=== PATIENT | female | born 1985 | race Caucasian/White ===

== ENCOUNTER 2020-07-10 16:51 | Outpatient (CLI) | payer OTHER, SELFPAY ==
[2020-07-10 17:43] LABS: Influenza A QL RT-PCR Negative (Negative); Influenza B QL RT-PCR Negative (Negative); SARS-CoV-2 RNA PCR Negative (Negative)
== END 2020-07-10 16:52 | disposition home or self-care (01) ==
LOC: CHSLAB 16:54
PROVIDERS: PCP Family Medicine; Visit Provider Family Medicine
DX: J00 Acute nasopharyngitis [common cold] (principal); Z20.822 Contact with and (suspected) exposure to COVID-19
CPT/HCPCS: 87502; C9803; U0003; U0005

== ENCOUNTER 2021-01-06 10:23 | Outpatient (CLI) | payer OTHER, SELFPAY ==
[2021-01-08 10:00] LABS: TB Skin Test Erythema 0 mm; TB Skin Test Induration 0 mm (0-10); TB Skin Test Interpretation Negative (Negative); TB Skin Test Site Left Arm
== END 2021-01-06 10:24 | disposition home or self-care (01) ==
LOC: CHSLAB 10:25
PROVIDERS: PCP Family Medicine; Visit Provider Family Medicine
DX: Z11.1 Encounter for screening for respiratory tuberculosis (principal)
CPT/HCPCS: 36415; 86580

== ENCOUNTER 2021-02-17 15:36 | Outpatient (CLI) | payer OTHER, SELFPAY ==
[2021-02-17 16:57] LABS: Influenza A QL RT-PCR Negative (Negative); Influenza B QL RT-PCR Negative (Negative); SARS-CoV-2 RNA PCR Negative (Negative)
== END 2021-02-17 15:37 | disposition home or self-care (01) ==
LOC: CHSLAB 15:40
PROVIDERS: PCP Family Medicine; Visit Provider Family Medicine
DX: J00 Acute nasopharyngitis [common cold] (principal); Z20.822 Contact with and (suspected) exposure to COVID-19
CPT/HCPCS: 87081; 87502; 87880; C9803; U0003; U0005

== ENCOUNTER 2021-09-09 12:45 | Emergency (ER) | payer OTHER, SELFPAY ==
[2021-09-09 12:56] VITALS: BP 139/92; PULSE 95; RESP 18; TEMP 36.9; O2SAT 98
--- NOTE | 2021-09-09 13:52 | ED.EAR ---
HPI - Ear Problem General Chief complaint: Ear Stated complaint: Double ear infection Time Seen by Provider: 09/09/21 12:49 Source: patient and RN notes reviewed Mode of arrival: ambulatory Limitations: no limitations History of Present Illness Complaint: ear discharge (left and decreased left hearing x 1 week.) Location: left ear Duration: constant Severity: mild Relieving factors: nothing Exacerbating factors: nothing Associated symptoms ear: decreased hearing Related Data Home Medications Medication Instructions Recorded Confirmed norethindrone 1 mg-ethinyl 1 tablet DAILY 09/09/21 09/09/21 estradiol 10 mcg (24)-iron 10 mcg(2) tablet (Lo Loestrin Fe) Allergies Allergy/AdvReac Type Severity Reaction Status Date / Time No Known Allergies Allergy Mild Verified 09/09/21 13:04 Review of Systems Review of Systems: All systems reviewed & are unremarkable except as noted in HPI and below Constitutional: Constitutional: Reports no additional constitutional complaints Eyes: Eyes: Reports no additional eye complaints ENT: Reports system reviewed and no additional complaints, except as documented Cardiovascular: Cardiovascular: Reports no additional cardiovascular complaints Respiratory: Respiratory: Reports no additional respiratory complaints Gastrointestinal: Gastrointestinal: Reports no additional gastrointestinal complaints Genitourinary: Genitourinary: Reports no additional female genitourinary complaints Musculoskeletal: Musculoskeletal: Reports no additional musculoskeletal complaints Integumentary/Breasts: Skin/Breast: Reports system reviewed and no additional complaints, except as docu Neurologic: Reports system reviewed and no additional complaints, except as documented Psychiatric: Psychiatric: Reports no additional psychiatric complaints Endocrine: Endocrine: Reports no additional endocrine complaints Hematologic/Lymphatic: Hematologic/Lymphatic: Reports no additional hematologic/lymphatic complaints Allergic/Immunologic: Allergic/Immunologic: Reports no additional allergic/immunologic complaints PMFSH Past Medical History Medical History (Updated 09/09/21 @ 14:13 by Humberto Obrien MD) Eustachian tube dysfunction Exam Const: General: healthy appearing and no acute distress Nutritional Appearance: well nourished Orientation/consciousness: patient oriented x3 Limitations: no limitations HENMT: Head: normal to inspection Ears: external ears normal, TM's normal bilaterally and EAC's normal General nose exam: Normal external nose present and Normal nares present Face and sinus: normal facial exam and sinuses nontender Mouth: Yes Normal oral and palatal mucosa present and Yes moist mucous membranes Teeth and gingiva: dentition normal Throat: posterior oropharynx normal Eyes: Conjunctivae: conjunctivae normal Pupils: Equal, round and reactive pupils present EOM: EOMs intact bilaterally Neck: Neck: normal visual inspection, no lymphadenopathy and no meningeal signs Chest: Chest palpation & inspection: normal inspection of the chest Resp: Effort & Inspection: normal respiratory effort Auscultation: clear to auscultation bilaterally Cardio: Rate: regular rate Rhythm: regular rhythm GI: GI Palp: Yes Soft to palpation and No Tenderness to palpation present (GI) Auscultation: normal bowel sounds : General: Yes bladder normal to palpation and Yes no CVA tenderness Bimanual exam- vagina & uterus: bladder normal to palpation Back/Spine/Pelvis: Back: no CVA tenderness Skin: General skin exam: normal color Rashes: no rashes Wounds: no wounds Neuro: General: patient oriented x3, moves all extremities, no meningeal signs, no focal motor deficits and CN's II-XI intact bilaterally Cranial nerves: Yes Equal, round and reactive pupils present and Yes Nystagmus not present Speech: normal speech Gait exam (Neuro): Normal gait present Extrem: General: normal to inspe
[2021-09-09] MEDS: guaiFENesin 12 HR 600 MG TABCR PO (14:12)
[2021-09-09 14:15] VITALS: BP 137/95; PULSE 95; RESP 18; TEMP 36.5; O2SAT 96
== END 2021-09-09 14:15 | disposition home or self-care (01) ==
PROVIDERS: Emergency Provider Emergency Medicine; PCP Family Medicine
DX: H69.92 Unspecified Eustachian tube disorder, left ear (principal)
CPT/HCPCS: 99283; A9270

== ENCOUNTER 2021-09-20 07:40 | Outpatient (CLI) | payer OTHER, SELFPAY | END 2021-09-20 07:41 | disposition home or self-care (01) | LOC: CHSIMG 07:42 | PROVIDERS: PCP Family Medicine; Visit Provider Family Medicine | DX: H92.09 Otalgia, unspecified ear (principal) | CPT/HCPCS: 99199 ==

== ENCOUNTER 2021-09-27 21:12 | Emergency (ER) | payer OTHER, SELFPAY ==
--- NOTE | 2021-09-27 21:20 | ED.EAR ---
HPI - Ear Problem General Chief complaint: Ear Stated complaint: left ear pain Source: patient History of Present Illness HPI Narrative: since September 01 patient has been on 2 antibiotics Zithromax and Augmentin. She was recently here for blood coming out of her left ear and was put on some Mucinex. Today she is having pain in her left ear again. She denies any fever chills. Complaint: ear pain Location: left ear Duration: constant Severity: moderate Relieving factors: nothing Exacerbating factors: palpation Context: Reports recent illness Discharge from ear: Reports no Treatment prior to arrival: none Related Data Home Medications Medication Instructions Recorded Confirmed norethindrone 1 mg-ethinyl 1 tablet DAILY 09/09/21 09/27/21 estradiol 10 mcg (24)-iron 10 mcg(2) tablet (Lo Loestrin Fe) Allergies Allergy/AdvReac Type Severity Reaction Status Date / Time No Known Allergies Allergy Mild Verified 09/27/21 21:40 Review of Systems Review of Systems: All systems reviewed & are unremarkable except as noted in HPI and below PMFSH Past Medical History Medical History (Updated 09/27/21 @ 21:42 by Abram No MD) Eustachian tube dysfunction Surgical History Surgical History (Updated 09/27/21 @ 21:41 by Abram No MD) Hx of tonsillectomy Social History Social History (Updated 09/27/21 @ 21:42 by Abram No MD) Smoking packs per day: 0.2 Smoking cigarettes per day: 4.0 Smoking status: Current some day smoker Alcohol intake: current Alcohol use details: socially Substance use: never Exam Const: General: healthy appearing, no acute distress and alert Nutritional Appearance: well nourished and obese morbidly obese Orientation/consciousness: patient oriented x3 HENMT: Head: normal to inspection Ears: Abnormal EAC present erythema on the left and diffuse, edema on the left and localized and EAC tenderness on the left and localized and TM abnormal other ( Appears to be some dried blood on top of the tympanic membrane difficult to assess perforation); not bulging, not erythematous and with no loss of landmarks General nose exam: Normal external nose present Face and sinus: normal facial exam Eyes: Conjunctivae: conjunctivae normal Pupils: Equal, round and reactive pupils present EOM: EOMs intact bilaterally Neck: Neck: normal visual inspection and no lymphadenopathy Resp: Effort & Inspection: normal respiratory effort Auscultation: clear to auscultation bilaterally Cardio: Rate: regular rate Rhythm: regular rhythm GI: GI Palp: Yes Soft to palpation and No Tenderness to palpation present (GI) Auscultation: normal bowel sounds Back/Spine/Pelvis: Cervical Spine: cervical ROM normal Thoracic/Lumbar Spine: thoraco-lumbar ROM normal Skin: General skin exam: normal color Rashes: no rashes Neuro: General: patient oriented x3, moves all extremities, no focal motor deficits and CN's II-XI intact bilaterally Speech: normal speech Gait exam (Neuro): Normal gait present Extrem: General: normal to inspection and no clubbing, cyanosis or edema Psych: Mental Status: mental status grossly normal Affect: normal affect Attitude: cooperative Discharge Plan Discharge Clinical Impression: Otitis externa Qualifiers: Otitis externa type: diffuse Chronicity: acute Laterality: left Qualified Code(s): H60.312 - Diffuse otitis externa, left ear Patient Disposition: Home, Self-Care Condition: Stable Instructions: Earache (ED) Additional Instructions: follow-up with your primary care physician if not improved in the next 48 hours. Use 10 drops in the left ear daily. no swimming. Prescriptions: New ofloxacin 0.3 % drops 10 drp LEFT EAR DAILY 7 Days Qty: 10 0RF No Action Lo Loestrin Fe 1 mg-10 mcg (24)/10 mcg (2) tablet 1 tablet DAILY Follow-up/Referrals: Cornelio Horton MD [Primary Care Provider] - Time of Disposition: 21:38
[2021-09-27 21:36] VITALS: BP 140/97; PULSE 88; RESP 18; TEMP 36.6; O2SAT 96
== END 2021-09-27 22:12 | disposition home or self-care (01) ==
PROVIDERS: Emergency Provider Emergency Medicine; PCP Family Medicine
DX: H60.312 Diffuse otitis externa, left ear (principal)
CPT/HCPCS: 99283; A9270

== ENCOUNTER 2021-09-30 10:21 | Outpatient (CLI) | payer OTHER, SELFPAY ==
--- NOTE | ~2021-09-30 | MR_ITS ---
EXAMINATION: MR brain IAC wo con DATE: 09/30/2021 11:41 INDICATION: Left-sided hearing loss. TECHNIQUE: Magnetic resonance imaging (MRI) of the brain, brainstem, and internal auditory canals was performed without intravenous contrast. COMPARISON: Head CT 09/14/2009 FINDINGS: The cerebellar tonsils extend 7 mm inferior to foramen magnum, consistent with Chiari I mal formation. There is no intracranial hemorrhage, acute infarction, or abnormal intracranial mass lesio n. The ventricles are normal in size. The internal auditory canals and inner and middle ears are norm al. There is a small left mastoid effusion. The paranasal sinuses are clear. The orbits are normal. IMPRESSION: 1. Chiari I malformation. Reviewed, dictated and finalized at location A. IMPRESSION: 1. Chiari I malformation.
== END 2021-09-30 10:22 | disposition home or self-care (01) ==
LOC: CHSIMG 10:23
PROVIDERS: PCP Family Medicine; Visit Provider Family Medicine
DX: H92.09 Otalgia, unspecified ear (principal)
CPT/HCPCS: 70551

== ENCOUNTER 2021-10-18 07:40 | Outpatient (CLI) | payer OTHER, SELFPAY ==
--- NOTE | ~2021-10-18 | MR_ITS ---
EXAMINATION: MR cervical spine wo/w con DATE: 10/18/2021 10:46 INDICATION: Chiari I malformation. TECHNIQUE: Magnetic resonance imaging (MRI) of the cervical spine was performed without and with 10 m L MultiHance intravenous contrast. COMPARISON: Brain MRI 09/30/2021 FINDINGS: Bone alignment is normal. Vertebral body heights and intervertebral disc heights are normal . The cerebellar tonsils extend 7 mm inferior to foramen magnum, consistent with Chiari I malformatio n. The spinal cord signal intensity is normal. No syrinx. The following disc levels are specifically discussed: C2-C3 through C7-T1: The disc does not extend beyond the endplate margin. There is no uncovertebral j oint osteoarthritis. There is no facet joint osteoarthritis. There is no neural foraminal stenosis. T here is no central canal stenosis. IMPRESSION: 1. Chiari I malformation. 2. Normal cervical spinal cord. Reviewed, dictated and finalized at location A.
--- NOTE | ~2021-10-18 | MR_ITS ---
EXAMINATION: MR lumbar spine wo/w con DATE: 10/18/2021 10:46 INDICATION: Chiari I malformation. TECHNIQUE: Magnetic resonance imaging (MRI) of the lumbar spine was performed without and with 10 mL MultiHance intravenous contrast. COMPARISON: Lumbar spine radiographs 02/02/2011 FINDINGS: Bone alignment is normal. Vertebral body heights and intervertebral disc heights are normal . The distal spinal cord signal intensity is normal. The conus medullaris is at T12. The following di sc levels are specifically discussed: L1-L2 through L3-L4: The disc does not extend beyond the endplate margin. There is no facet joint ost eoarthritis. There is no neural foraminal stenosis. There is no central canal stenosis. L4-L5: The disc does not extend beyond the endplate margin. There is mild bilateral facet joint osteo arthritis. There is mild right neural foraminal stenosis. There is no central canal stenosis. L5-S1: The disc does not extend beyond the endplate margin. There is mild bilateral facet joint osteo arthritis. There is no neural foraminal stenosis. There is no central canal stenosis. IMPRESSION: 1. Mild lumbar spondylosis. Reviewed, dictated and finalized at location A. IMPRESSION: 1. Mild lumbar spondylosis.
--- NOTE | ~2021-10-18 | MR_ITS ---
EXAMINATION: MR thoracic spine wo/w con DATE: 10/18/2021 10:46 INDICATION: Chiari I malformation. TECHNIQUE: Magnetic resonance imaging (MRI) of the thoracic spine was performed without and with 10 m L MultiHance intravenous contrast. COMPARISON: None FINDINGS: Bone alignment is normal. Vertebral body heights and intervertebral disc heights are normal . The discs do not extend beyond the endplate margins. The facet joints are normal. No neural foramin al stenosis or central canal stenosis. The spinal cord signal intensity is normal. IMPRESSION: 1. Normal thoracic spine. Reviewed, dictated and finalized at location A. IMPRESSION: 1. Normal thoracic spine.
[2021-10-18 07:59] LABS: Estimated Glomerular Filt Rate > 60
== END 2021-10-18 07:41 | disposition home or self-care (01) ==
LOC: CHSIMG 07:41
PROVIDERS: PCP Family Medicine; Visit Provider Family Medicine
DX: G93.5 Compression of brain (principal)
CPT/HCPCS: 72156; 72157; 72158; A9577

== ENCOUNTER 2021-11-15 15:09 | Emergency (ER) | payer BC, OTHER, SELFPAY ==
--- NOTE | ~2021-11-15 | XR_ITS ---
EXAMINATION: XR chest 1V portable Exam Date/Time: 11/15/2021 16:35 CDT HISTORY: COUGH, SHORTNESS OF BREATH X 1 WEEK. Comparison: 09/23/2009. RESULT: Lines, tubes, and devices: None. Lungs and pleura: Clear. Cardiomediastinal silhouette: Stable. Other: No acute osseous or upper abdominal finding. IMPRESSION: No acute cardiopulmonary process. Reviewed, dictated and finalized at location K.
[2021-11-15 15:18] VITALS: BP 122/89; PULSE 99; RESP 16; TEMP 36.4; O2SAT 97
--- NOTE | 2021-11-15 15:24 | ED.URI ---
HPI - URI/Sore Throat General Chief Complaint: Upper Respiratory Infection Stated Complaint: pt thinks she has bronchitis Time Seen by Provider: 11/15/21 15:25 Source: patient Mode of arrival: ambulatory History of Present Illness HPI Narrative: 36-year-old female, smoker with a prior history of bronchitis / pneumonia presents to the ER with a five-day history of -- cough which is minimally productive of yellow sputum -- chest discomfort which is made worse by coughing. The chest discomfort is unaffected by exercise /activity No fever or chills. patient is COVID vaccinated and she did have COVID 1 year ago. The patient has had a recent left tympanic membrane perforation. She has had recurrent bronchitis in the last 3 months for which she has been on Augmentin and Zithromax. MD elicited complaint: fever and cough Onset (ago): day(s) ( started 5 days ago) Consistency: constant Severity: moderate Description of mucous: yellow Able to tolerate fluids by mouth: Yes Exacerbating factors: nothing Relieving factors: nothing Associated symptoms: cough Treatments prior to arrival: none Related Data Home Medications Medication Instructions Recorded Confirmed norethindrone 1 mg-ethinyl 1 tablet DAILY 09/09/21 11/15/21 estradiol 10 mcg (24)-iron 10 mcg(2) tablet (Lo Loestrin Fe) Allergies Allergy/AdvReac Type Severity Reaction Status Date / Time gabapentin AdvReac Other Verified 11/15/21 15:23 Review of Systems Review of Systems: All systems reviewed & are unremarkable except as noted in HPI and below Constitutional: Constitutional: Reports as per HPI and Reports no additional constitutional complaints Eyes: Eyes: Reports as per HPI and Reports no additional eye complaints ENT: Reports system reviewed and no additional complaints, except as documented and Reports as per HPI Cardiovascular: Cardiovascular: Reports as per HPI and Reports no additional cardiovascular complaints Comments: Chest discomfort Respiratory: Respiratory: Reports as per HPI, Reports no additional respiratory complaints and Reports cough Gastrointestinal: Gastrointestinal: Reports as per HPI and Reports no additional gastrointestinal complaints Genitourinary: Genitourinary: Reports no additional female genitourinary complaints and Reports as per HPI Musculoskeletal: Musculoskeletal: Reports no additional musculoskeletal complaints and Reports as per HPI Integumentary/Breasts: Skin/Breast: Reports system reviewed and no additional complaints, except as docu and Reports as per HPI Neurologic: Reports system reviewed and no additional complaints, except as documented and Reports as per HPI Psychiatric: Psychiatric: Reports no additional psychiatric complaints and Reports as per HPI Endocrine: Endocrine: Reports no additional endocrine complaints and Reports as per HPI Hematologic/Lymphatic: Hematologic/Lymphatic: Reports no additional hematologic/lymphatic complaints and Reports as per HPI Allergic/Immunologic: Allergic/Immunologic: Reports no additional allergic/immunologic complaints and Reports as per HPI PMFSH Past Medical History Medical History Eustachian tube dysfunction Surgical History Surgical History Hx of tonsillectomy Social History Social History Smoking packs per day: 0.2 Smoking cigarettes per day: 4.0 Smoking status: Current some day smoker Alcohol intake: current Alcohol use details: socially Substance use: never Exam Const: General: healthy appearing and no acute distress Nutritional Appearance: well nourished Limitations: no limitations HENMT: Head: normal to inspection Ears: external ears normal General nose exam: Normal external nose present Face and sinus: normal facial exam Mouth: Yes Normal oral and palatal mucosa
--- NOTE | 2021-11-15 15:36 | ECG_ITS ---
Measurements Intervals [place] Rate: 94 P: 52 NH: 156 QRS: 67 QRSD: 81 T: 59 QT: 331 QTc: 415 Interpretive Statements SINUS RHYTHM NORMAL ECG NO PREVIOUS ECG AVAILABLE FOR COMPARISON Electronically Signed On 11-15-2021 17:53:35 CDT by Jarod Hidalgo D.O.
[2021-11-15 16:17] LABS: Basophils Absolute Auto 0.04 K/mm3 (0.00-0.10); Basophils Percent Auto 0.5 % (0.0-1.0); Eosinophils Absolute Auto 0.23 K/mm3 (0.02-0.50); Eosinophils Percent Auto 3.1 % (1.0-6.0); Hematocrit 36.5 % (35.0-49.0); Hemoglobin 12.3 g/dL (12.0-15.0); Immature Granulocyte Absolute 0.03 K/mm3 (0.00-0.00); Immature Granulocyte Percent A 0.4 % (0.0-0.0); Lymphocytes Absolute Auto 3.16 K/mm3 (1.10-4.50); Lymphocytes Percent Auto 43.2 % (18.0-42.0); Mean Corpuscular HGB Conc 33.7 g/dL (32.0-36.0); Mean Corpuscular Hemoglobin 32.3 pg (27.0-31.0); Mean Corpuscular Volume 95.8 fL (78.0-102.0); Monocytes Absolute Auto 0.65 K/mm3 (0.10-0.90); Monocytes Percent Auto 8.9 % (2.0-11.0); Neutrophils Absolute Auto 3.2 K/mm3 (1.7-7.2); Neutrophils Percent Auto 43.9 % (50.0-70.0); Platelet Count Result 390 K/mm3 (150-420); Red Blood Count 3.81 M/mm3 (4.20-5.40); Red Cell Distribution Width 12.1 % (11.6-14.4); White Blood Count 7.3 K/mm3 (4.8-10.8)
[2021-11-15 16:20] LABS: Add Urine Microscopic? NO; Appearance Urine Clear (Clear); Bilirubin Urine Negative (Negative); Blood Urine Negative (Negative); Color Urine Yellow (Yellow); Glucose Urine UA Negative (Negative); Ketones Urine Negative (Negative); Leukocyte Esterase Ur Negative (Negative); Nitrate Urine Negative (Negative); Protein Urine Negative (Negative); Specific Grav Ur >= 1.030 (1.010-1.020); Urobilinogen Urine 0.2 mg/dL (0.2-1.0)
[2021-11-15 16:27] LABS: Pregnancy On Board Control Positive; Urine Pregnancy Test Negative
[2021-11-15 16:28] LABS: Alanine Aminotransferase 86 U/L (14-59); Albumin Level 3.3 g/dL (3.4-5.0); Alkaline Phosphatase 59 U/L (46-116); Anion Gap 8 mmol/L (8-16); Aspartate Amino Transferase 41 U/L (15-37); Bilirubin,Total 0.2 mg/dL (0.00-1.00); Blood Urea Nitrogen 14 mg/dL (7-18); Calcium 8.4 mg/dL (8.5-10.1); Carbon Dioxide 26 mmol/L (21-32); Chloride 104 mmol/L (98-108); Estimated Glomerular Filt Rate > 60; Glucose 87 mg/dL (70-99); Lipase 87 U/L (73-393); Osmolality Calculated 285 mOsm/kg (285-295); Sodium 138 mmol/L (136-145); Total Protein 6.3 g/dL (6.4-8.2); Troponin I 4.8 ng/L (0.00-60.4)
[2021-11-15] MEDS: IPRATROPIUM 0.5 MG/ALBUTEROL SULFATE 2.5 MG AMPUL.NEB 3 ML INHALATION (16:45)
[2021-11-15 16:47] VITALS: PULSE 88; RESP 17; O2SAT 96
[2021-11-15 16:53] VITALS: PULSE 91; RESP 17; O2SAT 99
[2021-11-15 16:59] LABS: Influenza A QL RT-PCR Negative (Negative); Influenza B QL RT-PCR Negative (Negative); SARS-CoV-2 RNA PCR Negative (Negative)
[2021-11-15 17:25] VITALS: O2SAT 100
[2021-11-15 17:32] VITALS: BP 127/94; PULSE 110; RESP 16; TEMP 36.4; O2SAT 95
== END 2021-11-15 17:35 | disposition home or self-care (01) ==
PROVIDERS: Emergency Provider Internal Medicine Critical Care Medicine; PCP Family Medicine
DX: J20.9 Acute bronchitis, unspecified (principal); Z20.822 Contact with and (suspected) exposure to COVID-19
CPT/HCPCS: 36415; 71045; 80053; 81003; 81025; 83690; 84484; 85025; 87502; 93005; 94640; 99284; C9803; U0003; U0005

== ENCOUNTER 2022-01-10 17:38 | Emergency (ER) | payer BC, OTHER, SELFPAY ==
--- NOTE | ~2022-01-10 | CT_ITS ---
EXAMINATION: CT abdomen pelvis wo con DATE: 01/10/2022 19:02 INDICATION: Bilateral flank pain for 3 days TECHNIQUE: Computed tomography (CT) of the abdomen and pelvis was performed without intravenous contr ast. Automated exposure control and iterative reconstruction technique were employed. Exam dose: 748 .45 mGy-cm total exam DLP. COMPARISON: None. FINDINGS: The lung bases are clear. Normal heart size. No pericardial or pleural effusion. No hepatic, splenic, pancreatic, and adrenal or renal space-occupying mass lesion is evident on this limited noncontrast examination. There is suggestion of a subtle pinpoint nonobstructing lower pole left renal contrast. No urinary tr act calculus including any ureteral calculus or hydroureteronephrosis is noted. The urinary bladder, uterus and adnexal areas are unremarkable except for retroverted position of the uterus. Normal caliber of the abdominal aorta. No intraperitoneal or retroperitoneal or pelvic mass lesion or adenopathy or ascites. Normal appendix. No bowel obstruction, bowel wall thickening, pneumatosis or intraperitoneal free air . No suspicious osteolytic or osteoblastic lesions. IMPRESSION: Possible very slightly nonobstructing left renal calculus. No other urinary tract calcul us or hydroureteronephrosis Normal appendix Retroverted uterus Reviewed, dictated and finalized at Location [facility]. Reviewed, dictated and finalized at location A. BALL PLAYER IMPRESSION: Possible very slightly nonobstructing left renal calculus. No othe r urinary tract calculus or hydroureteronephrosis Normal appendix Retroverted uterus
[2022-01-10 18:02] VITALS: BP 126/73; PULSE 109; RESP 18; TEMP 36.6; O2SAT 98
[2022-01-10 18:07] LABS: Appearance Urine Clear (Clear); Bilirubin Urine Negative (Negative); Blood Urine Negative (Negative); Glucose Urine UA Negative (Negative); Ketones Urine Negative (Negative); Leukocyte Esterase Ur Negative LEU/UL (Negative); Nitrate Urine Negative (Negative); Protein Urine Negative (Negative); Urobilinogen Urine 0.2 mg/dL (0.2-1.0); pH Urine 6.5 (5.0-8.0)
[2022-01-10 18:13] LABS: Add Urine Microscopic? NO; Color Urine Light Yellow (Yellow)
[2022-01-10 18:47] LABS: Pregnancy On Board Control Positive; Urine Pregnancy Test Negative
[2022-01-10] MEDS: KETOROLAC (*BKC) 60 MG/2 ML VIAL IM (18:50)
[2022-01-10 19:01] LABS: Basophils Absolute Auto 0.04 K/mm3 (0.00-0.10); Basophils Percent Auto 0.4 % (0.0-1.0); Eosinophils Absolute Auto 0.29 K/mm3 (0.02-0.50); Eosinophils Percent Auto 3.1 % (1.0-6.0); Hematocrit 41.6 % (35.0-49.0); Hemoglobin 13.5 g/dL (12.0-15.0); Immature Granulocyte Absolute 0.03 K/mm3 (0.00-0.00); Immature Granulocyte Percent A 0.3 % (0.0-0.0); Lymphocytes Absolute Auto 3.95 K/mm3 (1.10-4.50); Lymphocytes Percent Auto 41.6 % (18.0-42.0); Mean Corpuscular HGB Conc 32.5 g/dL (32.0-36.0); Mean Corpuscular Volume 95.4 fL (78.0-102.0); Mean Platelet Volume 9.8 fl (9.2-11.8); Monocytes Absolute Auto 0.68 K/mm3 (0.10-0.90); Monocytes Percent Auto 7.2 % (2.0-11.0); Neutrophils Absolute Auto 4.5 K/mm3 (1.7-7.2); Neutrophils Percent Auto 47.4 % (50.0-70.0); Platelet Count Result 396 K/mm3 (150-420); Red Blood Count 4.36 M/mm3 (4.20-5.40); Red Cell Distribution Width 11.4 % (11.6-14.4); White Blood Count 9.5 K/mm3 (4.8-10.8)
--- NOTE | 2022-01-10 19:06 | ED.FEMALEGU ---
HPI - Female Genitourinary General Chief complaint: Urogenital-Female Stated complaint: infection;told by [facility] to come to rule out kidneys Time Seen by Provider: 01/10/22 17:43 Source: patient Mode of arrival: ambulatory Limitations: no limitations History of Present Illness HPI Narrative: this is a 36-year-old female that presents with some bilateral flank pain radiating into her groin area with no dysuria no urinary frequency no hematuria no fever chills, the patient was at her pharmacist and the pharmacist told her that she should go to the emergency department to get checked out. Otherwise there is no shortness of breath no chest pain . Onset (ago): day(s) Severity: mild Related Data Home Medications Medication Instructions Recorded Confirmed norethindrone 1 mg-ethinyl 1 tablet PO DAILY 09/09/21 01/10/22 estradiol 10 mcg (24)-iron 10 mcg(2) tablet (Lo Loestrin Fe) fluoxetine 60 mg tablet 60 mg PO DAILY 01/10/22 01/10/22 hydroxyzine HCl 25 mg tablet 25 mg PO DAILY 01/10/22 01/10/22 naltrexone 50 mg tablet 50 mg PO DAILY 01/10/22 01/10/22 rizatriptan 10 mg tablet 10 mg PO DAILY 01/10/22 01/10/22 topiramate 50 mg tablet 50 mg PO DAILY 01/10/22 01/10/22 Allergies Allergy/AdvReac Type Severity Reaction Status Date / Time gabapentin AdvReac Other Verified 01/10/22 18:05 Review of Systems Review of Systems: All systems reviewed & are unremarkable except as noted in HPI and below PMFSH Past Medical History Medical History Eustachian tube dysfunction Surgical History Surgical History Hx of tonsillectomy Social History Social History Smoking packs per day: 0.2 Smoking cigarettes per day: 4.0 Smoking status: Current some day smoker Alcohol intake: current Alcohol use details: socially Substance use: never Exam Const: General: healthy appearing Nutritional Appearance: well nourished Orientation/consciousness: patient oriented x3 Limitations: no limitations HENMT: Head: normal to inspection Ears: external ears normal Face and sinus: normal facial exam Eyes: Conjunctivae: conjunctivae normal EOM: EOMs intact bilaterally Neck: Neck: normal visual inspection, no lymphadenopathy and no meningeal signs Chest: Chest palpation & inspection: normal inspection of the chest Resp: Effort & Inspection: normal respiratory effort Auscultation: clear to auscultation bilaterally Cardio: Rate: regular rate Rhythm: regular rhythm GI: GI Palp: Yes Soft to palpation and Yes Tenderness to palpation present (GI) : General: Yes bladder normal to palpation Urinary Catheter: Urinary Catheter: patent and draining Back/Spine/Pelvis: Back: CVA tenderness Skin: General skin exam: normal color Rashes: no rashes Wounds: no wounds Neuro: General: patient oriented x3 and moves all extremities Cranial nerves: Yes Nystagmus not present Speech: normal speech Extrem: General: normal to inspection Psych: Appearance: grossly normal Mental Status: mental status grossly normal Affect: normal affect Course Course Emergency Course: reassessment of patient after she received Toradol and CT scan was reviewed with patient as well as blood work. Vital Signs Vital signs: Vital Signs Temperature 36.6 C 01/10/22 18:02 Pulse Rate 109 H 01/10/22 18:02 Respiratory Rate 18 01/10/22 18:02 Blood Pressure 126/73 01/10/22 18:02 Pulse Oximetry 98 01/10/22 18:02 Oxygen Delivery Room Air 01/10/22 18:02 Temperature 36.6 C 01/10/22 18:02 Pulse Rate 109 H 01/10/22 18:02 Respiratory Rate 18 01/10/22 18:02 Blood Pressure 126/73 01/10/22 18:02 Pulse Oximetry 98 01/10/22 18:02 Oxygen Delivery Room Air 01/10/22 18:02 MDM - Female Genitourinary Lab Data Result diagrams: 01/10/22 18:57 01/10
--- NOTE | 2022-01-10 19:07 | PC.NURSE ---
On 01/10/22, the student, [kim parks], provided care and completed [facility] documentation on this patient. I have reviewed the student's documentation and agree with the findings.
[2022-01-10 19:26] LABS: Alanine Aminotransferase 117 U/L (14-59); Alkaline Phosphatase 66 U/L (46-116); Anion Gap 9 mmol/L (8-16); Aspartate Amino Transferase 40 U/L (15-37); Bilirubin,Total 0.3 mg/dL (0.00-1.00); Blood Urea Nitrogen 10 mg/dL (7-18); Calcium 9.2 mg/dL (8.5-10.1); Carbon Dioxide 26 mmol/L (21-32); Chloride 106 mmol/L (98-108); Estimated CRCL calculation 97 ml/min; Estimated Glomerular Filt Rate > 60; Glucose 75 mg/dL (70-99); Osmolality Calculated 290 mOsm/kg (285-295); Potassium 3.9 mmol/L (3.5-5.1); Sodium 141 mmol/L (136-145); Total Protein 7.3 g/dL (6.4-8.2)
[2022-01-10 19:59] VITALS: BP 119/78; PULSE 87; RESP 20; TEMP 36.6; O2SAT 100
== END 2022-01-10 20:11 | disposition home or self-care (01) ==
PROVIDERS: Emergency Provider Emergency Medicine; PCP Family Medicine
DX: N20.0 Calculus of kidney (principal); N30.00 Acute cystitis without hematuria; R10.9 Unspecified abdominal pain
CPT/HCPCS: 36415; 74176; 80053; 81003; 81025; 85025; 96372; 99284; J1885

== ENCOUNTER 2022-01-15 10:59 | Outpatient (CLI) | payer BC, OTHER, SELFPAY ==
--- NOTE | ~2022-01-15 | XR_ITS ---
XR lumbar spine 2-3V DATE: 01/15/2022 11:25 INDICATION: Back pain TECHNIQUE: AP, lateral, coned lateral lumbosacral views COMPARISON: None FINDINGS: There is slight dextroscoliosis. No fracture or bone destruction or spondylolisthesis. The lumbar pedicles are intact. Lumbar levels interspaces are well preserved. The sacroiliac joints appea r normal. IMPRESSION: Slight dextroscoliosis; otherwise negative Reviewed, dictated and finalized at location B. DIRECTOR
--- NOTE | ~2022-01-15 | XR_ITS ---
XR thoracic spine 3V DATE: 01/15/2022 11:24 INDICATION: Back pain TECHNIQUE: AP, lateral views COMPARISON: None FINDINGS: There is slight levoscoliosis of the thoracic spine. There is mild degenerative spurring, most prominent at T9-10. No fracture or dislocation or bone dest ruction. The thoracic pedicles are intact. No paraspinal soft tissue thickening. IMPRESSION: Slight levoscoliosis and mild degenerative spurring Reviewed, dictated and finalized at location B. M MECHANIC
== END 2022-01-15 11:00 | disposition home or self-care (01) ==
LOC: CHSIMG 11:01
PROVIDERS: PCP Family Medicine; Visit Provider Family Medicine
DX: M54.9 Dorsalgia, unspecified (principal)
CPT/HCPCS: 72072; 72100

== ENCOUNTER 2022-01-20 12:54 | Outpatient (RCR) | payer BC, OTHER, SELFPAY ==
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
== END 2022-01-20 15:46 | disposition home or self-care (01) ==
LOC: CHSPT 12:54
PROVIDERS: PCP Family Medicine; Visit Provider Family Medicine
DX: M54.9 Dorsalgia, unspecified (principal)
CPT/HCPCS: 97014; 97110; 97161; G0283

== ENCOUNTER 2023-04-10 00:42 | Emergency (ER) | payer SELFPAY ==
[2023-04-10 00:48] VITALS: BP 118/97; PULSE 116; RESP 16; TEMP 36.4; O2SAT 100
--- NOTE | 2023-04-10 01:03 | ED.SKABFB ---
HPI - Skin/Abscess/Foreign Bdy General Chief complaint: Skin/Abscess/Foreign Body Stated complaint: R Breast Abcess Time Seen by Provider: 04/10/23 00:53 Source: patient Mode of arrival: ambulatory Limitations: no limitations History of Present Illness HPI narrative: Patient is a 37-year-old female with significant past medical history that presents today for a skin sore. A skin possible sepsis, possible cyst, possible rash on her right breast below with nipple. This is been there about 3 days down. She states this slowly getting worse now. She says that it has worker from sleep and has become more painful. She denies any purulent drainage Or any systemic symptoms such as fevers. MD complaint: rash and lesion Onset (ago): week(s) Tetanus up to date: yes Location: chest ( Right breast below nipple) Severity: moderate Severity scale (1-10): 4 Quality: sharp and dull Pain Consistency: intermittent Relieving factors: none Exacerbating factors: none Associated symptoms: denies other symptoms Treatments prior to arrival: none Related Data Home Medications Medication Instructions Recorded Confirmed norethindrone 1 mg-ethinyl 1 tablet PO DAILY 09/09/21 04/10/23 estradiol 10 mcg (24)-iron 10 mcg(2) tablet (Lo Loestrin Fe) Allergies Allergy/AdvReac Type Severity Reaction Status Date / Time gabapentin AdvReac Other Verified 04/10/23 01:01 Review of Systems Review of Systems: All systems reviewed & are unremarkable except as noted in HPI and below Constitutional: Constitutional: Reports no additional constitutional complaints Eyes: Eyes: Reports no additional eye complaints ENT: Reports system reviewed and no additional complaints, except as documented Cardiovascular: Cardiovascular: Reports no additional cardiovascular complaints Respiratory: Respiratory: Reports no additional respiratory complaints Gastrointestinal: Gastrointestinal: Reports no additional gastrointestinal complaints Genitourinary: Genitourinary: Reports no additional female genitourinary complaints Musculoskeletal: Musculoskeletal: Reports no additional musculoskeletal complaints Integumentary/Breasts: Skin/Breast: Reports as per HPI, Reports breast pain (Left breast under nipple ) and Reports breast mass Neurologic: Reports system reviewed and no additional complaints, except as documented Psychiatric: Psychiatric: Reports no additional psychiatric complaints Endocrine: Endocrine: Reports no additional endocrine complaints Hematologic/Lymphatic: Hematologic/Lymphatic: Reports no additional hematologic/lymphatic complaints Allergic/Immunologic: Allergic/Immunologic: Reports no additional allergic/immunologic complaints PMFSH Past Medical History Medical History Eustachian tube dysfunction Surgical History Surgical History Hx of tonsillectomy Social History Social History Smoking packs per day: 0.2 Smoking cigarettes per day: 4.0 Smoking status: Current some day smoker Alcohol intake: current Alcohol use details: socially Substance use: never Exam Const: General: no acute distress Nutritional Appearance: obese Orientation/consciousness: patient oriented x3 Limitations: no limitations HENMT: Head: normal to inspection Ears: external ears normal Face/Nose/Sinus: Normal external nose present Face and sinus: normal facial exam Mouth: Yes Normal oral and palatal mucosa present Teeth and gingiva: dentition normal Throat: posterior oropharynx normal Eyes: Conjunctivae: conjunctivae normal Pupils: Equal, round and reactive pupils present EOM: EOMs intact bilaterally Direct Ophthalmoscopy: no photophobia Neck: Neck: normal visual inspection Chest: Chest palpation & inspection: normal inspection of the chest Resp: Effort & Inspection: nor
[2023-04-10] MEDS: KETOROLAC (*BKC) 60 MG/2 ML VIAL IM (01:13)
[2023-04-10] MEDS: DOXYCYCLINE HYCLATE 100 MG TABLET PO (01:13)
--- NOTE | 2023-04-10 01:13 | PC.NURSE ---
Karla environmental services technician at bedside for librarian assistant for IM injection.
== END 2023-04-10 01:32 | disposition home or self-care (01) ==
PROVIDERS: Emergency Provider Family Medicine; PCP Family Medicine
DX: N61.1 Abscess of the breast and nipple (principal); Q83.9 Congenital malformation of breast, unspecified; F17.210 Nicotine dependence, cigarettes, uncomplicated
CPT/HCPCS: 96372; 99283; A9270; J1885

== ENCOUNTER 2024-11-07 13:49 | Outpatient (CLI) | payer BC, MEDICAID, SELFPAY ==
[2024-11-07 14:31] LABS: Strep Group A RT-PCR NOT DETECTED (Negative)
[2024-11-07 14:43] LABS: Influenza A QL RT-PCR Negative (Negative); Influenza B QL RT-PCR Negative (Negative); RSV RNA, RT-PCR Negative (Negative); SARS-CoV-2 RNA PCR Negative (Negative)
--- OUTSIDE RECORDS SUMMARY | 2024-11-07 15:26 | XMS_ITS | Encounter Summary ---
Author Organization [employer] Address [address] [place] [address] Care Team Providers Care Truck Driver Name Role Phone Unavailable Primary Care Provider Unavailabl e Encounter Details Date Type Department Care Team (Latest Contact Info) Description 04/05/2007 Inpatient Historical HIS PATIENT IN A BED Ericka, Cruz Depressive Disorder, not Elsewhere Classified Social History Tobacco Use Types Packs/Day Years Used Date Smoking Tobacco: Never Assessed Comments Unknown Sex and Gender Information Value Date Recorded Sex Assigned at Not on file Legal Sex Female 5:31 AM HOTEL OR MOTEL RECEPTIONIST Gender Identity Not on file Sexual Orientation Not on file documented as of this encounter Plan of Treatment Not on file documented as of this encounter Procedures Procedure Name Priority Date/Time Associated Diagnosis Comments TSH WITH REFLEX FT4 AND FT3 Routine 04/06/2007 3:30 AM HOTEL OR MOTEL RECEPTIONIST CBC WITH DIFFERENTIAL Routine 04/06/2007 3:30 AM HOTEL OR MOTEL RECEPTIONIST CBC WITH DIFFERENTIAL Routine 04/06/2007 3:30 AM HOTEL OR MOTEL RECEPTIONIST T4 FREE Routine 04/06/2007 3:30 AM HOTEL OR MOTEL RECEPTIONIST COMPREHENSIVE METABOLIC PANEL Routine 04/06/2007 3:30 AM HOTEL OR MOTEL RECEPTIONIST DRUG SCREEN, URINE Routine 04/05/2007 11 :30 PM HOTEL OR MOTEL RECEPTIONIST URINALYSIS W/REFLEX MICROSCOPIC Routine 04/05/2007 11:30 PM HOTEL OR MOTEL RECEPTIONIST documented in this encounter Results * T4 FREE (04/06/2007 3:30 AM HOTEL OR MOTEL RECEPTIONIST) FREE T4E,THYROID SCREEN 1.3 0.9 - 1.7 ng/dL INTERFACE SYSTEM 04/06/2007 3:30 AM HOTEL OR MOTEL RECEPTIONIST Cruz Ericka CHEMISTRY ORDERABLES Final Result Performing Organization Address [facility] Phone Number INTERFACE SYSTEM Refer to clinic/hospital department * CBC WITH DIFFERENTIAL (04/06/2007 3:30 AM HOTEL OR MOTEL RECEPTIONIST) NEUTROPHILS 53 45 - 70 % INTERFAC E SYSTEM LYMPHOCYTES 38 16 - 45 % INTERFAC E SYSTEM MONOCYTES 7 3 - 13 % INTERFACE SYSTEM EOSINOPHILS 1 0 - 7 % INTERFAC E SYSTEM BASOPHILS 0 0 - 2 % INTERFACE SYSTEM NEUTROPHIL ABSOLUTE 4.05 1.90 - 7.00 K/uL INTERFACE SYSTEM LYMPHOCYTE ABSOLUTE 2.89 0.70 - 4.50 K/uL INTERFACE SYSTEM MONOCYTE ABSOLUTE 0.56 0.10 - 1.30 K/uL INTERFACE SYSTEM EOSINOPHIL ABSOLUTE 0.11 0.00 - 0.70 K/uL INTERFACE SYSTEM BASOPHILS ABSOLUTE 0.02 0.00 - 0.20 K/uL INTERFACE SYSTEM 04/06/2007 3:30 AM HOTEL OR MOTEL RECEPTIONIST Cruz Barnett HEMATOLOGY ORDERABLES Final Result Performing Organization Address [facility] Phone Number INTERFACE SYSTEM Refer to clinic/hospital department * CBC WITH DIFFERENTIAL (04/06/2007 3:30 AM HOTEL OR MOTEL RECEPTIONIST) WBC 7.6 4.0 - 9.8 K/uL INTERFACE SYSTEM RBC 4.54 3.90 - 4.90 M/uL INTERFACE SYSTEM HEMOGLOBIN 13.9 11.8 - 14.8 g/dL INTERFACE SYSTEM HEMATOCRIT 40.8 35.5 - 44.0 % INTERFACE SYSTEM MCV 89.9 82.0 - 99.0 fL INTERFACE SYSTEM MCH 30.6 27.2 - 32.6 pg INTERFACE SYSTEM MCHC 34.1 31.5 - 35.5 % INTERFACE SYSTEM RDW 12.8 11.5 - 14.5 % INTERFACE SYSTEM RDW-STDEV 41.3 37.1 - 48.7 fL INTERFACE SYSTEM PLATELETS 338 140 - 350 K/uL INTERFACE SYSTEM MPV 9.9 9.3 - 12.4 fL INTERFACE SYSTEM 04/06/2007 3:30 AM HOTEL OR MOTEL RECEPTIONIST Cruz Barnett HEMATOLOGY ORDERABLES Final Result Performing Organization Address [facility] Phone Number INTERFACE SYSTEM Refer to clinic/hospital department * (ABNORMAL) TSH WITH REFLEX FT4 AND FT3 (04/06/2007 3:30 AM HOTEL OR MOTEL RECEPTIONIST) TSH 4.38(H) 0.27 - 4.20 uU/mL INTERFACE SYSTEM 04/06/2007 3:30 AM HOTEL OR MOTEL RECEPTIONIST Cruz Barnett CHEMISTRY ORDERABLES Final Result Performing Organization Address [facility] Phone Number INTERFACE SYSTEM Refer to clinic/hospital department * COMPREHENSIVE METABOLIC PANEL (04/06/2007 3:30 AM HOTEL OR MOTEL RECEPTIONIST) GLUCOSE 86 65 - 99 mg/dL INTERFACE SYSTEM CREATININE 0.54 0.51 - 0.95 mg/dL INTERFACE SYSTEM CALCIUM 9.0 8.4 - 10.2 mg/dL INTERFACE SYSTEM ALKALINE PHOSPHATASE 60 35 - 104 U/L INTERFACE SYSTEM AST 26 12 - 32 U/L INTERFACE SYSTEM ALT 23 0 - 31 U/L INTERFACE SYSTEM TOTAL PROTEIN 7.2 6.3 - 8.6 g/dL INTERFACE SYSTEM ALBUMIN 4.3 3.4 - 4.8 g/dL INTERFACE SYSTEM BILIRUBIN TOTAL 0.4 0.2 - 1.0 mg/dL INTERFACE SYSTEM BUN 8 6 - 20 mg/dL INTERFACE SYSTEM SODIUM 138 135 - 145 mmol/L INTERFACE SYSTEM POTASSIUM 4.3 3.5 - 4.9 mmol/L INTERFACE SYSTEM CHLORIDE 102 96 - 108 mmol/L INTERFACE SYSTEM CO2 24 22 - 30 mmol/L INTERFACE SYSTEM GFR, >60 >=60 mL/min/1.7 sq meter INTERFACE SYSTEM GFR >60 >=60 mL/min/1.7 sq meter INTERFACE SYSTEM Comment: Estimated GFR rate interpretative information for both Americans and non- Americans is available on the [facility] Intranet at: [email or web address] Select: Lab Policies and Procedures Select: Reference Ranges - GFR 04/06/2007 3:30 AM HOTEL OR MOTEL RECEPTIONIST Cruz Barnett CHEMISTRY ORDERABLES Final Result Performing Organization Address [facility] de Phone Number INTERFACE SYSTEM Refer to clinic/hospital department * (ABNORMAL) URINALYSIS (04/05/2007 11:30 PM HOTEL OR MOTEL RECEPTIONIST) COLOR UA Yellow INTERFACE SYSTEM CLARITY UA Slt. Cloudy(A) Clear INTERFACE SYSTEM SPECIFIC GRAVITY UA 1.008 1.001 - 1.035 INTERFACE SYSTEM PH UA 7.0 5.0 - 8.0 INTERFACE SYSTEM LEUKOCYTE ESTERASE UA Negative Negative INTERFACE SYSTEM NITRITE UA Negative Negative INTERFACE SYSTEM PROTEIN UA Negative Negative INTERFACE SYSTEM GLUCOSE UA Negative Negative INTERFACE SYSTEM KETONES UA Negative Negative INTERFACE SYSTEM UROBILINOGEN UA <1 <=1 mg/dL INTE RFACE SYSTEM BILIRUBIN UA Negative Negative INTERFA CE SYSTEM BLOOD UA 3+(A) Negative INTERFACE SYSTEM WBC UA 4 0 - 5 /HPF INTERFACE SYSTEM RBC UA >100(H) 0 - 4 /HPF INTERFACE SYSTEM EPITHELIAL CELLS, URINE 2-5 /HPF INTERFACE SYSTEM AMORPHOUS CRYSTAL Few /HPF INTERFACE SYSTEM 04/05/2007 11:3 0 PM HOTEL OR MOTEL RECEPTIONIST Cruz Barnett URINE ORDERABLES Final Resu lt Performing Organization Address [facility] Phone Number INTERFACE SYSTEM Refer to clinic/hospital department * DRUG SCREEN, URINE (04/05/2007 11:30 PM HOTEL OR MOTEL RECEPTIONIST) COMMENT, TOXICOLOGY See Separate Comment INTERFACE SYSTEM Comment: Urine sample was not handled as a legal specimen and was received without a chain of custody. The result should be used only for medical purposes. False positive and erroneous results can occur due to cross-reacting sub stances and other factors. Depending on the clinical context, confirmation of all presumptive positive results by a more specific alternate method is recommended. A negative result indicates the analyte, if present, is below the screening threshold. Drug Ref. Range Screening Threshold Amphetamines Negative 1000 ng/mL Barbituates Negative 200 ng/mL Benzodiazepines Negative 300 ng/mL Cannabinoids Negative 50 ng/mL Cocaine Metabolites Negative 300 ng/mL Opiates Negative 300 ng/mL Phencycldine Negative 25 ng/mL The cut-off threshold, known cross-reactive compounds, drugs,and specificity information for each of the urine drugs of abuse are available on the [facility] Intranet at: [email or web address] Select: Drugs of Abuse-[facility] To inquire about any potential cross-reactivity of a specific drug not listed at this site, please contact the Chemistry Lab at . AMPHETAMINE QUAL, URINE Negative Negative INTERFACE SYSTEM BARBITURATE QUAL, URINE Negative Negative INTERFACE SYSTEM BENZODIAZEPINE QUAL, URINE Negative Negative INTERFACE SYSTEM CANNABINOIDS QUAL, URINE Negative Negative INTERFACE SYSTEM COCAINE QUAL URINE Negative Negative I NTERFACE SYSTEM OPIATE QUAL, URINE Negative Negative I NTERFACE SYSTEM PCP QUAL, URINE Negative Negative INTE RFACE SYSTEM 04/05/2007 11:3 0 PM HOTEL OR MOTEL RECEPTIONIST Cruz Barnett URINE ORDERABLES Final Resu lt INTERFACE SYSTEM Refer to clinic/hospital department documented in this encounter Visit Diagnoses Diagnosis Depressive disorder, not elsewhere classified documented in this encounter
--- OUTSIDE RECORDS SUMMARY | 2024-11-07 15:26 | XMS_ITS | Clinical Summary ---
Author Organization [employer] Address [address] [facility] Attn: Epic Prelude ADT MURRAYRAFI WHARTONDMITRI ARSHAD [address] Care Team Providers Care Sweater Designer Name Role Phone Unavailable Primary Care Provider Unavailabl e Social History Tobacco Use Types Packs/Day Years Used Date Smoking Tobacco: Never Assessed Comments Unknown Sex and Gender Information Value Date Recorded Sex Assigned at Not on file Legal Sex Female 5:31 AM WARD MAID Gender Identity Not on file Sexual Orientation Not on file Plan of Treatment Health Maintenance Due Date Last Done Comments DTAP/TDAP/TD VACCINES (1 - Tdap) 05/16/2006 HEPATITIS B VACCINES (1 of 3 - 19+ 3-dose series) 04/29 HPV/Cotest (21-29) 05/16/2008 HPV VACCINES (1 - 3-dose SCDM series) 05/16/2014 CERVICAL CANCER SCREENING 05/16/2017 HPV/Cotest (30-65) 05/16/2017 PAP SMEAR 05/16/2017 INFLUENZA VACCINE (#1) 2024
--- OUTSIDE RECORDS SUMMARY | 2024-11-07 15:26 | XMS_ITS | Clinical Summary ---
Author Organization [facility] Address [address] [place] [address] Care Team Providers Care Director Digital Marketing Name Role Phone Blake Beckford MD Primary Care Provider [phone] Social History Tobacco Use Types Packs/Day Years Used Date Smoking Tobacco: Never Assessed Comments Unknown Sex and Gender Information Value Date Recorded Sex Assigned at Not on file Legal Sex Female 7:43 PM CDT Gender Identity Not on file Sexual Orientation Not on file Plan of Treatment Health Maintenance Due Date Last Done Comments Cervical Cancer Screening Pa p Smear (Age 30 to 64) Every 3 Years 1987 Annual Physical 05/16/1990 Hepatitis C 05/16/2005 DTaP, Tdap and Td Vaccines ( 1 - Tdap) 05/16/2006 Hepatitis B Vaccines (1 of 3 - 19+ 3-dose series) 05/16/2006 HPV Vaccines (1 - 3-dose SCD M series) 05/16/2014 Cervical Cancer Screening Pa p with HPV Testing (Age 30 to 64) Every 5 Years 05/16/2017 Cervical Cancer Screening with HPV 05/16/2017 COVID-19 Vaccine (2023-2 5 season) 2024 Meningococcal B Vaccine Aged Out No l onger eligible based on patient's age to complete this topic Meningococcal Vaccine Aged Out No rip abran eligible based on patient's age to complete this topic Pneumococcal Vaccine: Pediat rics (0 to 5 Years) and At-Risk Patients (6 to 49 Years) Aged Out No longer eligible b ased on patient's age to complete this topic RSV Immunizations Under 20 Months Aged Out No longer eligible based on patient's age to complete this topic Care Teams Director Digital Marketing Relationship Specialty Start Date End Date Blake Beckford MD PCP - General 04/22/14
--- OUTSIDE RECORDS SUMMARY | 2024-11-07 15:26 | XMS_ITS | Encounter Summary ---
Author Organization [facility] Address [address] [place] [id number] Care Team Providers Care Fish House Worker Name Role Phone Blake Beckford MD Primary Care Provider [phone] Encounter Details Date Type Department Care Team (Late st Contact Info) Description 01/02/2017 [place] [address] , Generic ConversionMD Social History Tobacco Use Types Packs/Day Years Used Date Smoking Tobacco: Never Assessed Comments Unknown Sex and Gender Information Value Date Recorded Sex Assigned at Not on file Legal Sex Female 7:43 PM CDT Gender Identity Not on file Sexual Orientation Not on file documented as of this encounter Plan of Treatment Not on file documented as of this encounter Visit Diagnoses Not on filedocumented in this encounter Care Teams Fish House Worker Relationship Specialty Start Date End Date Blake Beckford MD PCP - General 04/22/14 documented as of this encounter
== END 2024-11-07 13:50 | disposition home or self-care (01) ==
LOC: CHSLAB 13:53
PROVIDERS: PCP Family Medicine; Visit Provider Family Medicine
DX: J06.9 Acute upper respiratory infection, unspecified (principal)
CPT/HCPCS: 87637; 87651